=== PATIENT | male | born 1975 | race American Indian/Alaskan Native ===

== ENCOUNTER 2017-05-17 17:26 | Emergency (ER) | payer OTHER ==
[2017-05-17 17:26] VITALS: BMI 32.7
[2017-05-17 17:46] VITALS: BP 130/80; PULSE 78; RESP 20; TEMP 98.7; O2SAT 100
--- NOTE | 2017-05-17 18:16 | ED PDOC ---
HPI: General Adult Time Seen by Provider: 05/17/17 17:45 Chief Complaint (Nursing): ENT Problem Chief Complaint (Provider): ENT Problem History Per: Patient History/Exam Limitations: no limitations Onset/Duration Of Symptoms: Hrs Current Symptoms Are (Timing): Still Present Additional Complaint(s): 41 y/o male presents to the emergency department with a complaint of a right- sided ear pain that began today, 05/17/2017. Described as clogged. Denies cough or any further medical complaints. Past Medical History Reviewed: Historical Data, Nursing Documentation, Vital Signs Vital Signs: Last Vital Signs Temp 98.7 F 05/17/17 17:43 Pulse 78 05/17/17 17:43 Resp 20 05/17/17 17:43 BP 130/80 05/17/17 17:43 Pulse Ox 100 05/17/17 18:21 - Medical History PMH: Hypercholesterolemia - Surgical History Surgical History: No Surg Hx - Family History Family History: States: Unknown Family Hx - Home Medications Home Medications: Ambulatory Orders Medication Instructions Recorded Aspirin [Aspirin] 1 tab PO DAILY 07/18/15 Docusate [Colace] 100 mg PO DAILY #14 cap 07/18/15 Hard Fat/Phenylephrine [place] 1 sup RC DAILY #15 sup 07/18/15 [Anusol Suppository] Simvastatin [Zocor] 07/18/15 Clindamycin [Cleocin] 300 mg PO TID #21 cap 09/25/16 Ibuprofen [Motrin Tab] 600 mg PO Q6 PRN #15 tab 09/25/16 oxyCODONE/Acetaminophen [Percocet 1 ea PO TID PRN #10 tab 09/25/16 5/325 mg Tab] Ciprofloxacin/Dexamethasone 1 drop OT BID #1 bottle 05/17/17 [Ciprodex 0.3%-0.1% 7.5 Ml] Guaifenesin/Pseudoephedrne HCl 1 tab PO DAILY PRN #30 ter 05/17/17 [Mucinex D 600 mg-60 mg] - Allergies Allergies/Adverse Reactions: Allergies Allergy/AdvReac Type Severity Reaction Status Date / Time No Known Allergies Allergy Verified 08/22/15 15:02 Review of Systems ROS Statement: Except As Marked, All Systems Reviewed And Found Negative ENT: Positive for: Ear Pain (right sided) Respiratory: Negative for: Cough Physical Exam - Reviewed Nursing Documentation Reviewed: Yes Vital Signs Reviewed: Yes - Physical Exam Appears: Positive for: Non-toxic, No Acute Distress Head Exam: Positive for: ATRAUMATIC, NORMAL INSPECTION, NORMOCEPHALIC Skin: Positive for: Normal Color, Warm, Dry Eye Exam: Positive for: Normal appearance ENT: Positive for: Other (Mild erythema to the right ear canal. ). Negative for : Pharyngeal Erythema Neck: Positive for: Normal, Supple Neurologic/Psych: Positive for: Alert, Oriented (x3) - ECG O2 Sat by Pulse Oximetry: 100 (RA) Pulse Ox Interpretation: Normal Disposition - Clinical Impression Clinical Impression: Left ear pain - Patient ED Disposition Is Patient to be Admitted: No - Disposition Disposition: Routine/Home Disposition Time: 18:24 Condition: STABLE Prescriptions: Ciprofloxacin/Dexamethasone [Ciprodex 0.3%-0.1% 7.5 Ml] 1 drop OT BID #1 bottle Guaifenesin/Pseudoephedrne HCl [Mucinex D 600 mg-60 mg] 1 tab PO DAILY PRN #30 ter PRN Reason: congestion Instructions: Earache (ED) Forms: [facility] ([place]), [facility] ED School/Work Excuse - POA Present On Arrival: None
== END 2017-05-17 19:02 | disposition home or self-care (01) ==
LOC: H.ER 17:26
DX: H92.01 Otalgia, right ear (principal); E78.00 Pure hypercholesterolemia, unspecified; Z79.82 Long term (current) use of aspirin

== ENCOUNTER 2017-12-02 00:03 | Emergency (ER) | payer OTHER ==
[2017-12-02 00:03] VITALS: BMI 32.7
[2017-12-02 00:20] VITALS: RESP 16; TEMP 98.4
--- NOTE | 2017-12-02 00:51 | ED PDOC ---
HPI: General Adult Time Seen by Provider: 12/02/17 00:49 Chief Complaint (Nursing): Dizziness/Lightheaded Chief Complaint (Provider): near syncope History Per: Family (42 y/o male h/o hyperlipidemia here for evaluation of unresponsiveness noted by partner x 2 minutes today. Patient states he was upset about "his problems" prior to incident but does not detail events. Partner states his leg started shaking and then he fell off bed. Was not responding to questions by partner at time but state he heard questions being asked. No loss of urine. No tongue biting noted.) Past Medical History Reviewed: Historical Data, Nursing Documentation, Vital Signs Vital Signs: Last Vital Signs Temp 98.4 F 12/02/17 00:15 Pulse 90 12/02/17 02:24 Resp 16 12/02/17 02:24 BP 148/84 12/02/17 02:24 Pulse Ox 97 12/02/17 02:24 - Medical History PMH: Hypercholesterolemia - Family History Family History: States: Unknown Family Hx - Home Medications Home Medications: Ambulatory Orders Medication Instructions Recorded Aspirin [Aspirin] 1 tab PO DAILY 07/18/15 Docusate [Colace] 100 mg PO DAILY #14 cap 07/18/15 Hard Fat/Phenylephrine [place] 1 sup RC DAILY #15 sup 07/18/15 [Anusol Suppository] Simvastatin [Zocor] 07/18/15 Clindamycin [Cleocin] 300 mg PO TID #21 cap 09/25/16 Ibuprofen [Motrin Tab] 600 mg PO Q6 PRN #15 tab 09/25/16 oxyCODONE/Acetaminophen [Percocet 1 ea PO TID PRN #10 tab 09/25/16 5/325 mg Tab] Ciprofloxacin/Dexamethasone 1 drop OT BID #1 bottle 05/17/17 [Ciprodex 0.3%-0.1% 7.5 Ml] Guaifenesin/Pseudoephedrne HCl 1 tab PO DAILY PRN #30 ter 05/17/17 [Mucinex D 600 mg-60 mg] - Allergies Allergies/Adverse Reactions: Allergies Allergy/AdvReac Type Severity Reaction Status Date / Time No Known Allergies Allergy Verified 12/02/17 00:15 Review of Systems ROS Statement: Except As Marked, All Systems Reviewed And Found Negative Physical Exam - Reviewed Nursing Documentation Reviewed: Yes Vital Signs Reviewed: Yes - Physical Exam Appears: Positive for: Well, Non-toxic, No Acute Distress Head Exam: Positive for: ATRAUMATIC, NORMAL INSPECTION, NORMOCEPHALIC Skin: Positive for: Normal Color, Warm, DRY Eye Exam: Positive for: EOMI, Normal appearance, PERRL ENT: Positive for: Normal ENT Inspection Neck: Positive for: Normal, Painless ROM Cardiovascular/Chest: Positive for: Regular Rate, Rhythm Respiratory: Positive for: CNT, Normal Breath Sounds Gastrointestinal/Abdominal: Positive for: Normal Exam, Soft Back: Positive for: Normal Inspection Extremity: Positive for: Normal ROM Neurologic/Psych: Positive for: Alert, Oriented - Laboratory Results Result Diagrams: 12/02/17 00:50 12/02/17 00:50 - ECG O2 Sat by Pulse Oximetry: 98 - Progress ED Course And Treament: ekg: nsr no ectopy no acute changes Head CT: NAD patient advised to f/u with neurology for evaluation of shaking of leg/possible seizure activity. Disposition - Clinical Impression Clinical Impression: Tremor, Seizure-like activity - Patient ED Disposition Is Patient to be Admitted: No - Disposition Referrals: Talat Mcginnis MD [Primary Care Provider] - Sheryl Raines MD [Medical Doctor] - Disposition: Routine/Home Disposition Time: 02:32 Condition: FAIR Instructions: Seizures Forms: [facility] ([place]), [facility] ED School/Work Excuse
[2017-12-02 01:20] LABS: BASO # 0.1 K/uL (0.0-0.2); BASO % 1.3 % (0.0-2.0); EOS # 0.1 K/uL (0.0-0.7); EOS % 0.9 % (0.0-4.0); HEMOGLOBIN 14.6 g/dL (12.0-18.0); LYMPH # 2.4 K/uL (1.0-4.3); LYMPH % 40.7 % (20.0-40.0); MEAN CORPUSCULAR HEMOGLOBIN 29.7 pg (27.0-31.0); MEAN CORPUSCULAR HGB CONC 33.8 g/dL (33.0-37.0); MONO # 0.5 K/uL (0.0-0.8); MONO % 8.7 % (0.0-10.0); NEUT # 2.9 K/uL (1.8-7.0); NEUT % 48.4 % (50.0-75.0); NRBC % 0.1 % (0.0-0.0); RBC 4.91 Mil/uL (4.40-5.90); RED CELL DISTRIBUTION WIDTH 13.4 % (11.5-14.5)
[2017-12-02 01:56] LABS: ALB/GLOB RATIO 1.1 (1.0-2.1); ALBUMIN 3.8 g/dL (3.5-5.0); ALT/SGPT 45 U/L (21-72); AST/SGOT 42 U/L (17-59); BLOOD UREA NITROGEN 14 mg/dl (9-20); CALCIUM 9.2 mg/dL (8.4-10.2); GFR AFRICAN-AMERICAN > 60; GFR NON-AFRICAN AMERICAN > 60
--- NOTE | 2017-12-02 02:02 | CT ---
EXAM: CT Head Without Intravenous Contrast EXAM DATE/TIME: 12/02/2017 12:45 AM CLINICAL HISTORY: 42 years old, male; Signs and symptoms; Other: Seizure; Additional info: Shaking of leg/? Seizure like activity TECHNIQUE: Axial computed tomography images of the head/brain without intravenous contrast. All CT scans at this facility use one or more dose reduction techniques, viz.: automated exposure control; ma/kV adjustment per patient size (including targeted exams where dose is matched to indication; i.e. head); or iterative reconstruction technique. Coronal and sagittal reformatted images were created and reviewed. COMPARISON: No relevant prior studies available. FINDINGS: BRAIN: No acute abnormality identified. No acute hemorrhage seen within the brain. No acute extra-axial fluid collections visualized. No evidence of significant mass effect within the brain. Normal ball-white matter differentiation. VENTRICLES: No evidence of significant hydrocephalus. BONES/JOINTS: No acute fractures or other acute bony abnormality noted. SOFT TISSUES: No acute abnormality of the visualized soft tissues is seen. SINUSES: Visualized paranasal sinuses appear clear. MASTOID AIR CELLS: Mastoid air cells appear clear. IMPRESSION: - No acute findings seen within the brain. - See above for remaining findings.
[2017-12-02 02:27] VITALS: BP 148/84; PULSE 90
[2017-12-02 02:31] VITALS: O2SAT 98
--- NOTE | 2017-12-02 07:44 | CARD ---
APPROVED REPORT EKG Measurement Heart [id number] <Conclusion> Normal sinus rhythm Left anterior fascicular block Possible Anterior infarct, age undetermined Nonspecific IVCD Abnormal ECG
== END 2017-12-02 02:48 | disposition home or self-care (01) ==
LOC: H.ER 00:03
DX: R25.1 Tremor, unspecified (principal); W06.XXXA Fall from bed, initial encounter; Y92.003 Bedroom of unspecified non-institutional (private) residence as the place of occurrence of the external cause; E78.00 Pure hypercholesterolemia, unspecified; Z79.82 Long term (current) use of aspirin

== ENCOUNTER 2018-03-12 09:21 | Emergency (ER) | payer OTHER ==
[2018-03-12 09:22] VITALS: BMI 32.7
[2018-03-12 09:28] VITALS: BP 123/86; PULSE 89; RESP 21; TEMP 98.6; O2SAT 100
--- NOTE | 2018-03-12 09:35 | ED PDOC ---
HPI: Skin/Bite Injury Time Seen by Provider: 03/12/18 09:29 History Per: Patient Onset/Duration Of Symptoms: Days (2) Current Symptoms Are (Timing): Still Present Location Of Injury: Right: Arm Quality Of Symptoms: Swollen Severity: Mild Additional Complaint(s): Redness and irritation to right bicep. Works dumping water at work. No fever. Started with irritation but got worse, Past Medical History Vital Signs: Last Vital Signs Temp 98.6 F 03/12/18 09:28 Pulse 89 03/12/18 09:28 Resp 21 03/12/18 09:28 BP 123/86 03/12/18 09:28 Pulse Ox 100 03/12/18 09:35 - Medical History PMH: Hypercholesterolemia - Family History Family History: States: Unknown Family Hx - Home Medications Home Medications: Ambulatory Orders Medication Instructions Recorded Sulfamethoxazole/Trimethoprim 1 tab PO BID #20 tab 03/12/18 [Bactrim DS 800 mg-160 mg] - Allergies Allergies/Adverse Reactions: Allergies Allergy/AdvReac Type Severity Reaction Status Date / Time No Known Allergies Allergy Verified 03/12/18 09:35 Review of Systems Constitutional: Negative for: Fever Skin: Positive for: Rash Physical Exam - Physical Exam Appears: Positive for: Non-toxic, No Acute Distress Skin: Positive for: Rash (Erythemetous excoriation to right bicep with mild surrounding erythema and swelling. No streaking) Lymphatic: Negative for: Axilla Node Tenderness - Laboratory Results Result Diagrams: 03/12/18 09:50 - ECG O2 Sat by Pulse Oximetry: 100 Disposition - Clinical Impression Clinical Impression: Cellulitis - Patient ED Disposition Is Patient to be Admitted: No Counseled Patient/Family Regarding: Studies Performed, Diagnosis, Need For Followup, Rx Given - Disposition Referrals: [facility] [Outside] Disposition: Routine/Home Disposition Time: 10:18 Condition: FAIR Prescriptions: Sulfamethoxazole/Trimethoprim [Bactrim DS 800 mg-160 mg] 1 tab PO BID #20 tab Instructions: Cellulitis and Erysipelas (Skin Infections)
[2018-03-12 10:10] LABS: BASO % 0.7 % (0.0-2.0); EOS % 0.6 % (0.0-4.0); HEMOGLOBIN 16.1 g/dL (12.0-18.0); LYMPH # 2.2 K/uL (1.0-4.3); LYMPH % 34.2 % (20.0-40.0); MEAN CELL VOLUME 87.3 fl (80.0-94.0); MEAN CORPUSCULAR HEMOGLOBIN 29.5 pg (27.0-31.0); MEAN CORPUSCULAR HGB CONC 33.8 g/dL (33.0-37.0); MEAN PLATELET VOLUME 7.4 fl (7.2-11.7); MONO # 0.5 K/uL (0.0-0.8); MONO % 8.1 % (0.0-10.0); NEUT # 3.7 K/uL (1.8-7.0); NEUT % 56.4 % (50.0-75.0); NRBC % 0.2 % (0.0-0.0); RBC 5.46 Mil/uL (4.40-5.90); RED CELL DISTRIBUTION WIDTH 13.3 % (11.5-14.5); WHITE BLOOD COUNT 6.5 K/uL (4.8-10.8)
[2018-03-12 10:23] LABS: ALB/GLOB RATIO 1.3 (1.0-2.1); ALBUMIN 4.5 g/dL (3.5-5.0); ALT/SGPT 37 U/L (21-72); AST/SGOT 37 U/L (17-59); BLOOD UREA NITROGEN 24 mg/dl (9-20); CALCIUM 9.3 mg/dL (8.4-10.2); GFR AFRICAN-AMERICAN > 60; GFR NON-AFRICAN AMERICAN > 60
== END 2018-03-12 10:23 | disposition home or self-care (01) ==
LOC: H.ER 09:21
DX: L03.113 Cellulitis of right upper limb (principal); E78.00 Pure hypercholesterolemia, unspecified